=== PATIENT | female | born 1990 | race Caucasian/White ===

== ENCOUNTER 2018-03-11 12:58 | Emergency (ER) | payer MEDICAID, OTHER ==
[2018-03-11] MEDS: SOD CHLORIDE 0.9% 1,000 ML IV (15:22)
[2018-03-11 15:23] LABS: ADD MAN DIFF? NO
[2018-03-11 15:25] LABS: BASOPHILS % 0.5 % (0.0-2.0); EOSINOPHILS # 0.1 10^3/ul (0.0-0.5); EOSINOPHILS % 1.5 % (0.0-7.0); HEMATOCRIT 37.1 % (37.0-47.0); HEMOGLOBIN 12.2 g/dl (12.0-16.0); LYMPHOCYTES # 2.7 10^3/ul (0.8-2.9); LYMPHOCYTES % 34.3 % (15.0-51.0); MEAN CORPUSCULAR HEMOGLOBIN 27.1 pg (29.0-33.0); MEAN CORPUSCULAR HGB CONC 32.9 g/dl (32.0-37.0); MEAN CORPUSCULAR VOLUME 82.3 fl (82.0-101.0); MEAN PLATELET VOLUME 11.8 fl (7.4-10.4); MONOCYTE # 0.4 10^3/ul (0.3-0.9); MONOCYTES % 4.7 % (0.0-11.0); NEUTROPHIL # 4.6 10^3/ul (1.6-7.5); NEUTROPHILS % 58.7 % (39.0-77.0); PLATELET COUNT 244 10^3/UL (140-415); RED BLOOD COUNT 4.51 10^6/ul (4.20-5.40); RED CELL DISTRIBUTION WIDTH 14.6 % (11.5-14.5)
[2018-03-11 15:25] LABS: WHITE BLOOD COUNT 7.9 10^3/ul (4.8-10.8)
[2018-03-11 16:02] LABS: ADD UMIC YES; UR CLARITY TURBID (CLEAR); UR COLOR RED (YELLOW); UR TOTAL PROTEIN (Dip) 2+ mg/dl (NEGATIVE)
[2018-03-11 16:03] LABS: UR BILIRUBIN (Dip) NEGATIVE (NEGATIVE); UR BLOOD (Dip) 3+ mg/dL (NEGATIVE); UR GLUCOSE (Dip) NEGATIVE (NEGATIVE); UR KETONES (Dip) NEGATIVE (NEGATIVE); UR NITRITE (Dip) NEGATIVE (NEGATIVE); UR UROBILINOGEN (Dip) 0.2 E.U./dL mg/dL (NEGATIVE)
[2018-03-11 16:04] LABS: UR LEUKOCYTE ESTERASE (Dip) NEGATIVE Leu/ul (NEGATIVE)
[2018-03-11 16:05] LABS: URINE RBCS >200 /HPF (0)
[2018-03-11 16:06] LABS: UR SQUAMOUS EPITHELIAL CELL FEW /HPF (FEW)
== END 2018-03-11 17:12 | disposition home or self-care (01) ==
LOC: FTE 12:58
DX: N93.9 Abnormal uterine and vaginal bleeding, unspecified (principal)
CPT/HCPCS: 76856; 81001; 81025; 85025; 96360; 96361; 99285-25